=== PATIENT | male | born 2000 | race Caucasian/White ===

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

== ENCOUNTER 2021-12-27 12:29 | Emergency (ER) | payer MEDICAID ==
[~2021-12-27] VITALS: Ht 180.3 cm; Wt 88.0 kg
--- NOTE | 2021-12-27 12:35 | NUR ---
Pt to bed #6 came from home. Connected pt to playground monitor. VSS. Pt c/o low back pain non-radiating and rates it 7/10. Pain started 3 days ago abruptly, no trauma. Skin is intact. Pt is A&Ox4. Neuro checks within normal limits. Pupils PERRLA. Ambulatory with steady gait. NKA. Has no known medical conditions. Bed in lowest position and safety checks set in place.
[2021-12-27 12:44] VITALS: BP_SYST 134
--- NOTE | 2021-12-27 12:54 | NUR ---
Dr. Suggs at bedside.
[2021-12-27] MEDS ORDERED: KETOROLAC TROMETHAMINE 60 MG/2 ML VIAL IM ONE (13:00)
--- NOTE | 2021-12-27 13:03 | NUR ---
Urine collected and dipstick has been completed.
[2021-12-27] MEDS ORDERED: NAPR-688 PO (13:52)
[2021-12-27 14:22] VITALS: BP_SYST 138
--- NOTE | 2021-12-27 14:22 | NUR ---
Patient given written and verbal discharge instructions and verbalizes understanding. ER MD discussed with patient the results and treatment provided. Patient in stable condition. ID arm band removed. Rx of Naproxen given. Patient educated on pain management and to follow up with PMD. Pain Scale . Opportunity for questions provided and answered. Medication side effect fact sheet provided.
== END 2021-12-27 14:22 | disposition home or self-care (01) ==
LOC: SED 12:29
DX: M54.50 Low back pain, unspecified (principal)
CPT/HCPCS: 72100; 81002; 96372; 99283; J1885